=== PATIENT | male | born 1975 | race Caucasian/White ===

== ENCOUNTER 2018-01-05 12:17 | Emergency (ER) | payer BC ==
[~2018-01-05] VITALS: Ht 185.4 cm; Wt 127.3 kg
[~2018-01-05 12:17] MED LIST: DEPAKOTE500 MG PO; HYDROCODONE-APA1 TAB PO; KLONOPIN1 MG PO; PROZAC40 MG PO; SOMA350 MG PO
[2018-01-05 12:52] VITALS: Ht 185.4 cm; Wt 127.3 kg
[2018-01-05] MEDS ORDERED: STERAPRED DS 1210 MG PO (13:03)
[2018-01-05] MEDS ORDERED: NAPROSYN500 MG PO (13:03)
[2018-01-05 13:33] VITALS: BP 168/092
== END 2018-01-05 13:34 | disposition home or self-care (01) ==
LOC: D.ER 12:17
DX: S39.012A Strain of muscle, fascia and tendon of lower back, initial encounter (principal); X50.0XXA Overexertion from strenuous movement or load, initial encounter; Y93.89 Activity, other specified; Y92.019 Unspecified place in single-family (private) house as the place of occurrence of the external cause

== ENCOUNTER 2018-03-31 17:59 | Emergency (ER) | payer BC ==
[2018-01-05 12:52] VITALS: BMI 37.0
[~2018-03-31 17:59] MED LIST changes: +NAPROSYN500 MG PO; +STERAPRED DS 1210 MG PO
== END 2018-03-31 23:44 | disposition left against medical advice (07) ==
LOC: D.ER 17:59
DX: M25.562 Pain in left knee (principal)

== ENCOUNTER 2020-10-08 08:43 | Emergency (ER) | payer MEDICAID ==
[~2020-10-08] VITALS: Ht 185.4 cm; Wt 118.2 kg
[2020-10-08 08:48] VITALS: BP 126/80; Ht 185.4 cm; Wt 118.2 kg
[2020-10-08] MEDS ORDERED: NORVASC2.5 MG PO (08:49)
[2020-10-08] MEDS ORDERED: SEROQUEL300 MG PO (08:50)
[2020-10-08] MEDS ORDERED: SEROQUEL25 MG PO (08:50)
[2020-10-08] MEDS ORDERED: NAPROSYN500 MG PO (10:48)
[2020-10-08] MEDS ORDERED: ULTRAM50 MG PO (10:48)
== END 2020-10-08 10:59 | disposition home or self-care (01) ==
LOC: D.ER 08:43
DX: M79.601 Pain in right arm (principal); W10.9XXA Fall (on) (from) unspecified stairs and steps, initial encounter; Y93.9 Activity, unspecified; Y92.9 Unspecified place or not applicable; I10 Essential (primary) hypertension